=== PATIENT | female | born 1960 ===

== ENCOUNTER 2021-10-05 12:52 | Inpatient (IN) | payer SELFPAY ==
[2021-10-05] MEDS ORDERED: MAGNESIUM SULFATE 2 GM/50 ML BAG IV ONE (13:41)
[2021-10-05] MEDS ORDERED: LACTATED RINGERS 1,000 ML IV ONE (13:41)
[2021-10-05] MEDS ORDERED: ALBUTEROL 2.5 MG/3 ML NEBU IH ONE (13:41)
[2021-10-05] MEDS ORDERED: IPRATROPIUM 0.02% NEBU 2.5 ML IH ONE (13:41)
[2021-10-05] MEDS ORDERED: dexAMETHasone 20 MG/5 ML VIAL IV ONE (13:41)
--- NOTE | 2021-10-05 13:43 | XRay Report ---
CHEST 2 VIEWS INDICATION / CLINICAL INFORMATION: SOB. COMPARISON: None available. FINDINGS: SUPPORT DEVICES: None. HEART / MEDIASTINUM: Heart is normal size. Aortic arch is mildly ectatic. LUNGS / PLEURA: Moderately extensive bilateral pulmonary opacities. No pneumothorax. ADDITIONAL FINDINGS: No significant additional findings. IMPRESSION: 1. Bilateral pneumonia, possibly representing atypical/viral pneumonia. Signer Name: Jim Polanco MD Signed: 10/05/2021 1:38 PM Workstation Name: [id number]
--- NOTE | 2021-10-05 13:45 | Emergency Department Report ---
ED Shortness of Breath HPI - General Chief Complaint: Dyspnea/Respdistress Stated Complaint: DIFFICULTY BREATHING Time Seen by Provider: 10/05/21 13:32 Source: patient Mode of arrival: Ambulatory Limitations: No Limitations - History of Present Illness Initial Comments: Patient presents with shortness of breath. She had been at [facility] for 10 days. She was diagnosed with Covid as well as pneumonia. She had asthma. She also has HIV. She was discharged approximately 2 weeks ago. She was given prescriptions, none of which has she taken. Patient states that she could not get her medications. She found no way to get her medications. She did not have the money to get her medications. She does not know why she was started on Bactrim when she was allergic to that. She does not know why she was started on Xarelto. She was never told that she had any kind of blood clot or any other problem. Patient came here for evaluation treatment because she was not feeling well and it been 2 weeks with ongoing cough and shortness of breath. - Related Data Allergies Allergy/AdvReac Type Severity Reaction Status Date / Time sulfamethoxazole Allergy Hives Verified 10/05/21 13:02 [From Bactrim] trimethoprim [From Bactrim] Allergy Hives Verified 10/05/21 13:02 ED Review of Systems ROS: Stated complaint: DIFFICULTY BREATHING Other details as noted in HPI Comment: All other systems reviewed and negative Constitutional: denies: fever Eyes: denies: eye pain ENT: throat pain (From cough) Respiratory: see HPI Cardiovascular: denies: chest pain Endocrine: denies: unexplained weight loss Gastrointestinal: denies: abdominal pain Genitourinary: denies: dysuria Musculoskeletal: denies: back pain Skin: denies: rash Neurological: denies: headache Hematological/Lymphatic: denies: easy bruising ED Past Medical Hx - Past Medical History Previous Medical History?: Yes Hx Hypertension: Yes Hx Asthma: Yes Hx HIV: Yes - Family History Family history: hypertension ED Physical Exam - General Limitations: No Limitations, Other (Pulse ox noted and normal) General appearance: alert, in distress (Moderate with 3 word to 4 word dyspnea) - Head Head exam: Present: atraumatic, normocephalic - Eye Eye exam: Present: normal appearance, EOMI. Absent: scleral icterus - ENT ENT exam: Present: normal orophraynx, normal external ear exam - Neck Neck exam: Present: normal inspection. Absent: meningismus - Respiratory Respiratory exam: Present: respiratory distress (Moderate), wheezes (Bilateral), rhonchi (Left base), accessory muscle use, prolonged expiratory - Cardiovascular Cardiovascular Exam: Present: normal rhythm, tachycardia - GI/Abdominal GI/Abdominal exam: Present: soft. Absent: tenderness - Extremities Exam Extremities exam: Present: normal capillary refill. Absent: calf tenderness - Back Exam Back exam: Absent: CVA tenderness (R), CVA tenderness (L) - Neurological Exam Neurological exam: Present: alert, oriented X3, CN II-XII intact, normal gait. Absent: motor sensory deficit - Psychiatric Psychiatric exam: Present: normal affect, normal mood - Skin Skin exam: Present: warm, dry ED Course Vital Signs 10/05/21 10/05/21 13:00 15:54 Temperature 97.4 F L Pulse Rate 110 H Respiratory 16 Rate Blood Pressure 139/95 [Right] O2 Sat by Pulse 95 85 Oximetry - Reevaluation(s) Reevaluation #1: 10/05/21 13:43 Continuous nebulizer was ordered with albuterol 10 mg and Atrovent 1 mg. Labs ordered. Old records reviewed. Reevaluation #2: 10/05/21 15:58 Work-up was complete. Patient is hypoxic. She was admitted. ED Medical Decision Making - Lab Data Result diagrams: 10/05/21 13:34 10/05/21 13:33 Rhythm strip: Sinus tachycardia without ectopy per monitor observe 10 seconds. - Radiology Data Radiology results: report reviewed - Medical Decision Making Patient presented secondary to difficulty breathing. She had a recent diagnosis of coronavirus and was discharged from [facility] after a 10-day hospital stay. Patient has not filled any of her prescriptions for 2 weeks. She does not know why she was prescribed Xarelto. She states that she was never told she had any kind of blood clot, DVT, or pulmonary embolism. She states that she was prescribed Bactrim although she is allergic to Bactrim. Again, she did not take her medication. Her chest x-ray still reveals a Covid pneumonia. She is hy poxic at 85% on room air after a continuous albuterol neb. Patient was admitted to the hospital. Critical Care Time: No Critical care attestation.: If time is entered above; I have spent that time in minutes in the direct care of this critically ill patient, excluding procedure time. ED Disposition Clinical Impression: Shortness of breath, COVID-19 virus infection Asthma exacerbation Qualifiers: Asthma severity: moderate Asthma persistence: persistent Qualified Code(s): J45.41 - Moderate persistent asthma with (acute) exacerbation Respiratory failure with hypoxia Qualifiers: Chronicity: acute Qualified Code(s): J96.01 - Acute respiratory failure with hypoxia Disposition: 09 ADMITTED INPATIENT Is pt being admited?: Yes Condition: Stable
[2021-10-05 14:11] LABS: Alanine Aminotransferase 8 units/L (7-56); Albumin 3.1 g/dL (3.9-5); BUN/Creatinine Ratio 14; Blood Urea Nitrogen 17 mg/dL (7-17); Calcium 8.7 mg/dL (8.4-10.2); Hemolysis Index 3
[2021-10-05 14:22] LABS: Basophils % (Auto) 0.2 % (0.0-1.8); Eosinophils # (Auto) 0.3 K/mm3 (0.0-0.4); Eosinophils % (Auto) 6.5 % (0.0-4.3); Hematocrit 33.2 % (30.3-42.9); Hemoglobin 10.7 gm/dl (10.1-14.3); Mean Corpuscular HGB Conc 32 % (30-34); Mean Corpuscular Volume 93 fl (79-97); Monocytes # (Auto) 0.2 K/mm3 (0.0-0.8); Monocytes % (Auto) 5.3 % (0.0-7.3); Platelet Count 429 K/mm3 (140-440); Red Blood Count 3.58 M/mm3 (3.65-5.03); Red Cell Distribution Width 13.9 % (13.2-15.2)
[2021-10-05] MEDS ORDERED: oxyCODONE /ACETAMINOPHEN 5-325MG TAB PO PRN (15:56)
[2021-10-05] MEDS ORDERED: ACETAMINOPHEN 325 MG TAB PO PRN (15:56)
[2021-10-05] MEDS ORDERED: ONDANSETRON 4 MG/2 ML INJ IV PRN (15:56)
[2021-10-05] MEDS ORDERED: ALBUTEROL 2.5 MG/3 ML NEBU IH PRN (15:56)
[2021-10-05] MEDS ORDERED: HYDROmorphone 1 MG/1 ML INJ IV PRN (15:56)
--- NOTE | 2021-10-05 15:58 | History and Physical Report ---
History of Present Illness Chief complaint: I cannot breathe History of present illness: 60 YO Female with HIV, HTN, Mild Intermittent Asthma, Coronavirus Infection diagnosed 3 weeks ago, Medication Noncompliance presents ED for evaluation. Patient reports "I cannot breathe". Patient states that she has experienced shortness of breath over the past 1 week. Patient has shortness of breath and is unable to speak in complete sentences. Patient uses head gestures to acknowledge shortness of breath, fatigue, malaise, generalized weakness, decreased exercise tolerance, dry cough, diminished sense of smell, and dim inished sense of taste. EMS was notified for the aforementioned symptoms and upon arrival the patient was found to be in distress and subsequently transported to [facility] for further care and evaluation of the aforementioned symptoms. The patient was seen and evaluated in the emergency department. All lab and imaging studies reviewed. Patient found to have a pulse oximetry of 85% on room air which is consistent with acute hypoxemic respiratory failure. Chest x-ray revealed pneumonia. Patient admitted to medical floor and initiated on pneumonia protocol as well as coronavirus protocol. Patient is sitting forward in bed, tripoding, using accessory muscles to breathe. No reports of fever, ch ills, chest pain, palpitation, productive cough, skin rash, recent ill contacts. No prior admission for review. No medication listed at time of admission for reconciliation. Advanced care planning conducted in ED. Past History Past Medical History: HIV/AIDS, hypertension Past Surgical History: No surgical history, Other (Reviewed) Social history: single. denies: smoking, alcohol abuse, prescription drug abuse Family history: hypertension Medications and Allergies Allergies Allergy/AdvReac Type Severity Reaction Status Date / Time sulfamethoxazole Allergy Hives Verified 10/05/21 13:02 [From Bactrim] trimethoprim [From Bactrim] Allergy Hives Verified 10/05/21 13:02 Active Meds: Active Medications Acetaminophen (Acetaminophen 325 Mg Tab) 650 mg PO Q4H PRN PRN Reason: Pain MILD(1-3)/Fever >100.5/NEELY Albuterol (Albuterol 2.5 Mg/3 Ml Nebu) 2.5 mg IH Q4HRT PRN PRN Reason: Shortness Of Breath Hydromorphone HCl (Hydromorphone 1 Mg/1 Ml Inj) 0.5 mg IV Q23H PRN PRN Reason: Pain , Severe (7-10) Ondansetron HCl (Ondansetron 4 Mg/2 Ml Inj) 4 mg IV Q8H PRN PRN Reason: Nausea And Vomiting Oxycodone/Acetaminophen (Oxycodone /Acetaminophen 5-325mg Tab) 1 tab PO Q16H PRN PRN Reason: Pain, Moderate (4-6) Sodium Chloride (Sodium Chloride 0.9% 10 Ml Flush Syringe) 10 ml IV BID CLAUDIA Sodium Chloride (Sodium Chloride 0.9% 10 Ml Flush Syringe) 10 ml IV PRN PRN PRN Reason: LINE FLUSH Review of Systems Constitutional: fatigue, weakness, malaise Ears, nose, mouth and throat: other (Diminished sense of smell, diminished sense of taste), no ear pain, no ear discharge, no tinnitis, no nose pain, no nasal congestion Breasts: normal Cardiovascular: shortness of breath, no chest pain, no orthopnea, no palpitations Respiratory: cough, shortness of breath Gastrointestinal: no abdominal pain, no nausea, no vomiting, no diarrhea Genitourinary Female: no pelvic pain, no flank pain, no dysuria, no urinary frequency, no urgency Rectal: no pain, no incontinence, no bleeding Musculoskeletal: no neck stiffness, no neck pain, no shooting arm pain, no arm numbness/tingling, no low back pain Integumentary: no rash, no pruritis, no redness, no wounds, no jaundice Neurological: no transient paralysis, no paralysis, no weakness, no numbness, no seizures Psychiatric: no anxiety, no memory loss, no sleep disturbances, no insomnia, no change in appetite, no change in libido Endocrine: no cold intolerance, no heat intolerance, no excessive thirst, no po lydipsia, no excessive sweating Hematologic/Lymphatic: no easy bruising, no easy bleeding Allergic/Immunologic: no urticaria, no allergic rhinitis Exam - Constitutional Vitals: Temp Pulse Resp BP Pulse Ox 97.4 F L 110 H 16 139/95 85 10/05/21 13:00 10/05/21 13:00 10/05/21 13:10/05/21 13:10/05/21 15:54 General appearance: Present: mild distress - EENT Eyes: Present: PERRL ENT: hearing intact, clear oral mucosa - Neck Neck: Present: supple, normal ROM - Respiratory Respiratory effort: labored, accessory muscle use, stridor Respiratory: bilateral: diminished, rhonchi - Cardiovascular Heart Sounds: Present: S1 & S2. Absent: rub, click - Extremities Extremities: pulses symmetrical, No edema Peripheral Pulses: within normal limits - Abdominal General gastrointestinal: Present: soft, non-tender, non-distended, normal bowel sounds Female genitourinary: Present: normal - Integumentary Integumentary: Present: clear, warm, dry - Musculoskeletal Musculoskeletal: gait normal, strength equal bilaterally - Psychiatric Psychiatric: appropriate mood/affect, intact judgment & insight - Neurologic Neurologic: CNII-XII intact, moves all extremities HEART Score - HEART Score Troponin: Troponin T < 0.010 ng/mL (0.00-0.029) 10/05/21 13:33 Results - Labs CBC & Chem 7: 10/05/21 13:34 10/05/21 13:33 Labs: Abnormal lab results 10/05/21 10/05/21 Range/Units 13:33 13:34 WBC 4.0 L (4.5-11.0) K/mm3 RBC 3.58 L (3.65-5.03) M/mm3 Eos % (Auto) 6.5 H (0.0-4.3) % Lymph # (Auto) 1.0 L (1.2-5.4) K/mm3 Carbon Dioxide 20 L (22-30) mmol/L Total Protein 8.3 H (6.3-8.2) g/dL Albumin 3.1 L (3.9-5) g/dL Assessment and Plan - Patient Problems (1) Acute hypoxemic respiratory failure Current Visit: Yes Status: Acute Plan to address problem: Chest x-ray, supplemental oxygen, pulse oximetry, nebulizer therapy, pulmonary toilet. (2) Pneumonia Current Visit: Yes Status: Acute Plan to address problem: Pneumonia protocol: Chest x-ray, CBC, CMP, supplemental oxygen, pulse oximetry, nebulizer therapy, blood culture. (3) Coronavirus infection Current Visit: Yes Status: Acute Plan to address problem: Coronavirus protocol: IV antibiotic therapy, IV steroid therapy, supplemental oxygen, pulse oximetry, vitamin C therapy, vitamin D therapy, zinc therapy, prophylactic anticoagulation. (4) COVID-19 vaccination not done Current Visit: Yes Status: Acute Plan to address problem: Patient counseled. (5) DVT prophylaxis Current Visit: Yes Status: Acute Plan to address problem: SCD to bilateral lower extremities while in bed, prophylactic anticoagulation (6) Advance care planning Current Visit: Yes Status: Acute Plan to address problem: Disease education conducted, care plan discussed, diagnoses discussed, prognosis discussed, patient is full code. Patient acknowledges understanding and agreement with care plan, +30 minutes.
[2021-10-05] MEDS: CHOLECALCIFEROL (VIT D3) 1000 UNIT (25 mcg) TAB PO SCH (17:31)
[2021-10-05] MEDS ORDERED: AZITHROMYCIN/NS 500 MG/250 ML 500 MG/250 ML BAG IV SCH (18:00)
[2021-10-05] MEDS: cefTRIAXone/NS 2 GM/100 ML 2 GM/100 ML BAG IV SCH (18:43)
[2021-10-05] MEDS: methylPREDNISolone Sod Succinate 40 MG/1 ML INJ IV SCH (23:09)
[2021-10-05] MEDS: ASCORBIC ACID 500 MG TAB PO SCH (23:10)
[2021-10-05] MEDS: ZINC SULFATE 220 MG CAP PO SCH (23:10)
[2021-10-05] MEDS: HEPARIN 5,000 UNIT/1 ML VIAL SUB-Q SCH (23:10)
[2021-10-05] MEDS: SODIUM CHLORIDE 0.9% 50 ML IVPB IV SCH (23:13)
[2021-10-06] MEDS: methylPREDNISolone Sod Succinate 40 MG/1 ML INJ IV SCH ×3 (05:49→22:16)
[2021-10-06 07:59] LABS: Basophils % (Auto) 0.1 % (0.0-1.8); Hematocrit 28.5 % (30.3-42.9); Hemoglobin 9.7 gm/dl (10.1-14.3); Lymphocytes # (Auto) 0.6 K/mm3 (1.2-5.4); Lymphocytes % (Auto) 25.8 % (13.4-35.0); Mean Corpuscular HGB Conc 34 % (30-34); Mean Corpuscular Volume 92 fl (79-97); Monocytes # (Auto) 0.1 K/mm3 (0.0-0.8); Monocytes % (Auto) 3.6 % (0.0-7.3); Platelet Count 401 K/mm3 (140-440)
[2021-10-06] MEDS: HEPARIN 5,000 UNIT/1 ML VIAL SUB-Q SCH ×2 (12:05→22:17)
[2021-10-06] MEDS: ZINC SULFATE 220 MG CAP PO SCH ×2 (12:06→22:16)
[2021-10-06] MEDS: SODIUM CHLORIDE 0.9% 50 ML IVPB IV SCH ×2 (12:06→22:27)
[2021-10-06] MEDS: ASCORBIC ACID 500 MG TAB PO SCH ×2 (12:06→22:16)
[2021-10-06] MEDS: CHOLECALCIFEROL (VIT D3) 1000 UNIT (25 mcg) TAB PO SCH (12:06)
--- NOTE | 2021-10-06 13:25 | Consultation ---
History of Present Illness - Reason for Consult Consult date: 10/06/21 - History of Present Illness 60-year-old female past medical history HIV, hypertension, asthma presented to hospital complaining shortness of breath. Shortness of breath began approximate 1 week prior to admission and is associated with COVID-19 which was diagnosed 3 weeks prior to admission. She complains of other typical COVID-19 symptoms. She was found to be hypoxic on presentation, and as such was admitted. She was recently seen at [facility] for this issue and was prescribed outpatient medications, though she notes that she was unable to pick them up from the pharmacy. She was previously on ART, and was undetectable at that time. She is not currently on any ART however and has not been for some time. Afebrile with a white count of 2.5. She is currently on ceftriaxone, azithromycin, Solu-Medrol. Imaging personally reviewed: Chest x-ray: Bilateral pneumonia Review of systems: Deferred to reduce to the risk of transmission of COVID-19 Past History Past Medical History: HIV/AIDS, hypertension Past Surgical History: No surgical history, Other (Reviewed) Social history: single. denies: smoking, alcohol abuse, prescription drug abuse Family history: hypertension Medications and Allergies Allergies Allergy/AdvReac Type Severity Reaction Status Date / Time sulfamethoxazole Allergy Hives Verified 10/06/21 12:25 [From Bactrim] trimethoprim [From Bactrim] Allergy Hives Verified 10/06/21 12:25 Home Medications Medication Instructions Recorded Confirmed Last Taken Type No Known Home Medications [No 10/06/21 10/06/21 Unknown History Reported Home Medications] Active Meds: Active Medications Acetaminophen (Acetaminophen 325 Mg Tab) 650 mg PO Q4H PRN PRN Reason: Pain MILD(1-3)/Fever >100.5/NEELY Albuterol (Albuterol 2.5 Mg/3 Ml Nebu) 2.5 mg IH Q4H PRN PRN Reason: Shortness Of Breath Ascorbic Acid (Ascorbic Acid 500 Mg Tab) 500 mg PO BID [facility] Last Admin: 10/06/21 12:06 Dose: 500 mg Azithromycin (Azithromycin 250 Mg Tab) 500 mg PO QPM CLAUDIA Stop: 10/09/21 18:01 Cholecalciferol (Cholecalciferol (Vit D3) 1000 Unit (25 Mcg) Tab) 1,000 unit PO QDAY [facility] Last Admin: 10/06/21 12:06 Dose: 1,000 unit Heparin Sodium (Porcine) (Heparin 5,000 Unit/1 Ml Vial) 5,000 unit SUB-Q Q12HR [facility] Last Admin: 10/06/21 12:05 Dose: 5,000 unit Hydromorphone HCl (Hydromorphone 1 Mg/1 Ml Inj) 0.5 mg IV Q23H PRN PRN Reason: Pain , Severe (7-10) Ceftriaxone Sodium (Rocephin/Ns 2 Gm/100 Ml) 2 gm in 100 mls @ 200 mls/hr IV Q24H [facility]; Protocol Stop: 10/09/21 18:29 Last Admin: 10/05/21 18:43 Dose: 200 mls/hr Methylprednisolone Sodium Succinate (Methylprednisolone Sod Succinate 40 Mg/1 Ml Inj) 40 mg IV Q8HR [facility] Last Admin: 10/06/21 05:49 Dose: 40 mg Ondansetron HCl (Ondansetron 4 Mg/2 Ml Inj) 4 mg IV Q8H PRN PRN Reason: Nausea And Vomiting Oxycodone/Acetaminophen (Oxycodone /Acetaminophen 5-325mg Tab) 1 tab PO Q16H PRN PRN Reason: Pain, Moderate (4-6) Sodium Chloride (Sodium Chloride 0.9% 50 Ml Ivpb) 10 ml IV BID [facility] Last Admin: 10/06/21 12:06 Dose: 10 ml Sodium Chloride (Sodium Chloride 0.9% 10 Ml Flush Syringe) 10 ml IV PRN PRN PRN Reason: LINE FLUSH Zinc Sulfate (Zinc Sulfate 220 Mg Cap) 220 mg PO BID [facility] Last Admin: 10/06/21 12:06 Dose: 220 mg Physical Examination - Physical Exam Narrative exam: Physical exam deferred to reduce risk of transmission of COVID-19. Please refer to primary team's note. - Constitutional Vitals: Vital Signs Temp Pulse Resp BP Pulse Ox 97.5 F L 105 H 18 126/84 93 10/06/21 05:55 10/06/21 05:55 10/06/21 05:55 10/06/21 05:55 10/06/21 05:55 Temperature -Last 24 Hours Temperature 97.5 F Results - Labs CBC & Chem 7: 10/06/21 06:55 10/05/21 13:33 Labs: Abnormal lab results 10/05/21 10/05/21 10/06/21 Range/Units 13:33 13:34 06:55 WBC 4.0 L 2.5 L (4.5-11.0) K/mm3 RBC 3.58 L 3.10 L (3.65-5.03) M/mm3 Hgb 9.7 L (10.1-14.3) gm/dl Hct 28.5 L (30.3-42.9) % Eos % (Auto) 6.5 H (0.0-4.3) % Lymph # (Auto) 1.0 L 0.6 L (1.2-5.4) K/mm3 Seg Neutrophils % 70.5 H (40.0-70.0) % Carbon Dioxide 20 L (22-30) mmol/L Total Protein 8.3 H (6.3-8.2) g/dL Albumin 3.1 L (3.9-5) g/dL Assessment and Plan Cultures: None A/P: 60 yo F PMhx HIV, asthma now with: #COVID-19 pneumonia: Patient presented with a week of symptoms, chest x-ray with diffuse bilateral infiltrates, admission O2 sats 85% on room air. Inflammatory markers elevated. Diagnosed 3 weeks ago as an outpatient #Acute hypoxemic respiratory failure: Likely secondary to COVID-19 infection. Currently on room air #HIV: was previously on ART and undetectable. She reports believing the HIV is "dormant". She was seen by ID at [facility] recently and was given Bactrim, though is allergic. She notes having a follow up appointment with [facility] set already. #Leukopenia: secondary to COVID vs untreated HIV. Recs: -10 days steroids -Diagnosed too long ago to be candidate for remdesivir -Obtain q48-72h inflammatory markers - ferritin, Ddimer, CRP, LDH -Continue ceftriaxone 2 gm IV qday and azithromycin 500 mg PO qday, if procalcitonin <0.25 ng/mL stop antibiotics -Follow up with [facility] to begin again on ART. -Anticoagulation per hospital protocol -Proning as able Thank you for the consult, we will continue to follow. MD Cynthia [facility] O: [phone] F: [phone]
--- NOTE | 2021-10-06 14:54 | Progress Note ---
Assessment and Plan -- Acute hypoxemic respiratory failure Due to underlying pneumonia Continue empiric antibiotics, supplemental oxygen, pulse oximetry, nebulizer therapy, pulmonary toilet. -- Pneumonia Pneumonia protocol: IV antibiotics, supplemental oxygen, pulse oximetry, nebulizer therapy, blood culture. 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 ID consulted for further recommendation -- HIV not compliant with meds Patient counseled. -- DVT prophylaxis SCD to bilateral lower extremities while in bed, prophylactic anticoagulation --Full CODE STATUS Disposition: Wait for Covid test result, follow ID recommendation. Assess for home O2 requirement. Counseled for compliance with HIV meds. Subjective Date of service: 10/06/21 Interval history: Patient seen and examined. Medical records and medication list reviewed. No acute event overnight noted by the RN. Patient complains of cough and difficulty breathing even on resting. Patient is tolerating diet. Not on any HIV meds, was discharged from [facility] recently after being treated for Covid pneumonia Repeat Covid test is pending Discussed plan of care at bedside with patient. Objective - Exam Narrative Exam: GENERAL: well-developed -Japanese female lying on bed appeared to be in no discomfort. HEENT: Normocephalic. Atraumatic. No conjunctival congestion or icterus. Patient has moist mucous membranes. NECK: Supple. Trachea midline. CHEST/LUNGS: Coarse breath sounds auscultated bilaterally, breathing nonlabored. HEART/CARDIOVASCULAR: Regular in rate and rhythm. S1 and S2 positive. ABDOMEN: Abdomen is soft, nontender. Patient has normal bowel sounds. SKIN: There is no rash. Warm and dry. NEURO: No focal motor deficit. Follows command. MUSCULOSKELETAL: No joint effusion or tenderness. EXTRIMITY: No edema, no cyanosis or clubbing. PSYCH: Cooperative. - Constitutional Vitals: Vital Signs - 12hr 10/06/21 10/06/21 03:00 05:55 Temperature 97.5 F L Pulse Rate 105 H Respiratory 18 Rate Blood Pressure 126/84 O2 Sat by Pulse 97 93 Oximetry - Labs CBC & Chem 7: 10/06/21 06:55 10/05/21 13:33 Labs: Abnormal lab results 10/06/21 Range/Units 06:55 WBC 2.5 L (4.5-11.0) K/mm3 RBC 3.10 L (3.65-5.03) M/mm3 Hgb 9.7 L (10.1-14.3) gm/dl Hct 28.5 L (30.3-42.9) % Lymph # (Auto) 0.6 L (1.2-5.4) K/mm3 Seg Neutrophils % 70.5 H (40.0-70.0) % HEART Score - HEART Score Troponin: Troponin T < 0.010 ng/mL (0.00-0.029) 10/05/21 13:33
[2021-10-06] MEDS: AZITHROMYCIN 250 MG TAB PO SCH (20:28)
[2021-10-06] MEDS: cefTRIAXone/NS 2 GM/100 ML 2 GM/100 ML BAG IV SCH (20:28)
[2021-10-07] MEDS: methylPREDNISolone Sod Succinate 40 MG/1 ML INJ IV SCH ×3 (06:07→22:11)
--- NOTE | 2021-10-07 10:14 | Electrocardiograph Report ---
[facility] Test Date: 2021-10-06 Test Time: 00:53:09 Pat Name: FLORINA MARTINEZ Department: Room: A365 1 Gender: F Telephone Lineman: CHANDRAKANT : 1960 Requested By: JEFF ROGERS Order Number: [id number] Reading MD: Kwadwo Varela Measurements Intervals Frakes Rate: 61 P: 25 MA: 177 QRS: 5 QRSD: 83 T: 31 QT: 460 QTc: 464 Interpretive Statements Sinus rhythm No previous ECG available for comparison Electronically Signed On 10-07-2021 10:14:07 EST by Kwadwo Varela
[2021-10-07] MEDS: CHOLECALCIFEROL (VIT D3) 1000 UNIT (25 mcg) TAB PO SCH (10:52)
[2021-10-07] MEDS: ZINC SULFATE 220 MG CAP PO SCH ×2 (10:52→22:11)
[2021-10-07] MEDS: ASCORBIC ACID 500 MG TAB PO SCH ×2 (10:52→22:11)
[2021-10-07] MEDS: SODIUM CHLORIDE 0.9% 50 ML IVPB IV SCH ×2 (10:53→22:10)
[2021-10-07] MEDS: HEPARIN 5,000 UNIT/1 ML VIAL SUB-Q SCH ×2 (10:53→22:10)
--- NOTE | 2021-10-07 14:53 | Progress Note ---
Assessment and Plan Cultures: None A/P: 60 yo F PMhx HIV, asthma now with: #COVID-19 pneumonia: Patient presented with a week of symptoms, chest x-ray with diffuse bilateral infiltrates, admission O2 sats 85% on room air. Inflammatory markers elevated. Diagnosed 3 weeks ago as an outpatient #Acute hypoxemic respiratory failure: Likely secondary to COVID-19 infection. Currently on 2 L nasal cannula #HIV: was previously on ART and undetectable. She reports believing the HIV is "dormant". She was seen by ID at [facility] recently and was given Bactrim, though is allergic. She notes having a follow up appointment with [facility] set already. #Leukopenia: secondary to COVID vs untreated HIV. Recs: -10 days steroids -Hypoxemic secondary to post COVID-19 inflammation, though given untreated HIV risk of pneumocystis remains -Check Fungitell in a.m. labs -Diagnosed too long ago to be candidate for remdesivir -Obtain q48-72h inflammatory markers - ferritin, Ddimer, CRP, LDH -Continue ceftriaxone 2 gm IV qday and azithromycin 500 mg PO qday, if procalcitonin <0.25 ng/mL stop antibiotics -Follow up with [facility] to begin again on ART. -Anticoagulation per hospital protocol -Proning as able Thank you for the consult, we will continue to follow. Noris Mccoy MD [facility] O: [phone] F: [phone] Subjective Date of service: 10/07/21 Interval history: Remains afebrile, white count 2.5. Covid negative. Currently on 2 L nasal cannula. Objective - Exam Narrative Exam: Physical exam deferred to reduce risk of transmission of COVID-19. Please refer to primary team's note. - Constitutional Vitals: Vital Signs Temp Pulse Resp BP Pulse Ox 97.7 F 100 H 20 144/108 97 10/06/21 22:21 10/06/21 22:21 10/06/21 22:21 10/06/21 22:21 10/07/21 10:37 Temperature -Last 24 Hours Temperature 97.7 F Temperature 98.2 F - Labs CBC & Chem 7: 10/06/21 06:55 10/05/21 13:33
--- NOTE | 2021-10-07 15:59 | Discharge Summary ---
Providers - Providers Date of Admission: 10/05/21 15:56 Date of discharge: 10/08/21 Attending physician: DEVANG NEWELL 10/06/21 09:31 Consult to Physician [CONS] Routine Comment: Consulting Provider: ISSA RANGEL Physician Instructions: Reason For Exam: COVID PNA Primary care physician: DIRECTOR OF PATIENT CARE Hospitalization Condition: Stable Disposition: 30 STILL A PATIENT Exam - Constitutional Vitals: Temp Pulse Resp BP Pulse Ox 97.7 F 100 H 20 144/108 97 10/06/21 22:21 10/06/21 22:21 10/06/21 22:21 10/06/21 22:21 10/07/21 10:37 Plan Activity: advance as tolerated Weight Bearing Status: Weight Bear as Tolerated Diet: low fat, low salt Follow up with: PRIMARY CARE,MD [Primary Care Provider] - 3-5 Days Prescriptions: Prednisone [predniSONE 10 mg (6-Day Pack, 21 Tabs)] 10 mg PO .TAPER #1 Albuterol Mdi (or & Nicu Only) [ProAir HFA Inhaler] 2 puff IH QID PRN #8.5 gram PRN Reason: Shortness Of Breath Azithromycin [Zithromax TAB] 500 mg PO QPM #4 tablet
[2021-10-07 18:21] VITALS: BP 130/89
[2021-10-07] MEDS: cefTRIAXone/NS 2 GM/100 ML 2 GM/100 ML BAG IV SCH (19:12)
[2021-10-07] MEDS: AZITHROMYCIN 250 MG TAB PO SCH (19:12)
[2021-10-08] MEDS: methylPREDNISolone Sod Succinate 40 MG/1 ML INJ IV SCH ×2 (05:22→14:21)
[2021-10-08] MEDS: HEPARIN 5,000 UNIT/1 ML VIAL SUB-Q SCH (09:04)
[2021-10-08] MEDS: ASCORBIC ACID 500 MG TAB PO SCH (09:05)
[2021-10-08] MEDS: SODIUM CHLORIDE 0.9% 50 ML IVPB IV SCH (09:05)
[2021-10-08] MEDS: CHOLECALCIFEROL (VIT D3) 1000 UNIT (25 mcg) TAB PO SCH (09:06)
[2021-10-08] MEDS: ZINC SULFATE 220 MG CAP PO SCH (09:06)
--- NOTE | 2021-10-08 15:13 | Progress Note ---
Assessment and Plan -- Acute hypoxemic respiratory failure Due to underlying pneumonia Continue empiric antibiotics, supplemental oxygen, pulse oximetry, nebulizer therapy, pulmonary toilet. -- Pneumonia. CAP ? Pneumonia protocol: cont IV antibiotics, supplemental oxygen, pulse oximetry, nebulizer therapy, blood culture. 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 ID recommended to continue steroid -- HIV not compliant with meds Patient counseled. -- DVT prophylaxis SCD to bilateral lower extremities while in bed, prophylactic anticoagulation --Full CODE STATUS Disposition: Repeat Covid test is negative, ID recommended patient to follow-up at [facility] clinic. patient stable for d/c, wait on home O2 arrangement Subjective Date of service: 10/07/21 Interval history: Patient seen and examined. Medical records and medication list reviewed. No acute event overnight noted by the RN. Patient needs home O2. Continue to have difficulty breathing, patient is to lerating diet. Repeat Covid test is negative Discussed plan of care at bedside with patient. Objective - Exam Narrative Exam: GENERAL: well-developed -[place] female lying on bed appeared to be in no discomfort. HEENT: Normocephalic. Atraumatic. No conjunctival congestion or icterus. Patient has moist mucous membranes. NECK: Supple. Trachea midline. CHEST/LUNGS: Coarse breath sounds auscultated bilaterally, breathing nonlabored. HEART/CARDIOVASCULAR: Regular in rate and rhythm. S1 and S2 positive. ABDOMEN: Abdomen is soft, nontender. Patient has normal bowel sounds. SKIN: There is no rash. Warm and dry. NEURO: No focal motor deficit. Follows command. MUSCULOSKELETAL: No joint effusion or tenderness. EXTRIMITY: No edema, no cyanosis or clubbing. PSYCH: Cooperative. - Constitutional Vitals: Vital Signs - 12hr 10/08/21 10:00 O2 Sat by Pulse 95 Oximetry - Labs CBC & Chem 7: 10/06/21 06:55 10/05/21 13:33 HEART Score - HEART Score Troponin: Troponin T < 0.010 ng/mL (0.00-0.029) 10/05/21 13:33
== END 2021-10-08 16:34 | disposition home or self-care (01) | DRG 189 ==
LOC: ED 12:52 → 3A 15:56
PROVIDERS: ADMIT Internal Medicine; ATTEND Internal Medicine
DX: J96.01 Acute respiratory failure with hypoxia (principal); J18.9 Pneumonia, unspecified organism; J45.901 Unspecified asthma with (acute) exacerbation; B20 Human immunodeficiency virus [HIV] disease; Z82.49 Family history of ischemic heart disease and other diseases of the circulatory system; I10 Essential (primary) hypertension; Z20.822 Contact with and (suspected) exposure to COVID-19
CPT/HCPCS: 36415; 71046; 80053; 84145; 84484; 85025; 93005; 94760; G0378; J0456; J0696; J1100; J1644; J2920; J3475; J7120; U0003